=== PATIENT | female | born 1960 | race Caucasian/White ===

== ENCOUNTER → 2019-08-13 09:48 | Outpatient (BNVA) | payer MEDICARE, MEDICAID, SELFPAY | PROVIDERS: Visit Provider Nurse Practitioner Family | DX: I10 Essential (primary) hypertension (principal); F32.9 Major depressive disorder, single episode, unspecified; E78.2 Mixed hyperlipidemia; E11.9 Type 2 diabetes mellitus without complications | CPT/HCPCS: 80053; 80061; 81001; 82652; 83036; 84443; 85025 ==

== ENCOUNTER → 2019-08-16 11:46 | Outpatient (BNVA) | payer MEDICARE, MEDICAID, SELFPAY | PROVIDERS: Visit Provider Nurse Practitioner Family | DX: M25.551 Pain in right hip (principal); E53.8 Deficiency of other specified B group vitamins; E55.9 Vitamin D deficiency, unspecified | CPT/HCPCS: 82306; 82607 ==

== ENCOUNTER 2019-08-26 14:33 | Outpatient (CLI) | payer MEDICARE, MEDICAID, SELFPAY ==
--- NOTE | 2019-08-26 14:46 | XR_ITS ---
WS: [id number] PELVIS AND RIGHT HIP HISTORY: acute on chronic hip pain COMPARISON: None available. Right hip: No acute fracture or dislocation. No osteoblastic or osteolytic bone disease. No displacem ent. Bones the pelvis are symmetric. There is high density material just above the LEFT iliac wing and ext ends over the vertebral bodies. I suspect this may be the patient's clothing. The etiology of this hy perdense material is not certain. Potentially could be within the GI tract. XR/XR hip RT 2-3V wo/w pel* [id number] IMPRESSION: 1. No hip fracture. 2. Negative pelvis. 3. High density material in the soft tissues of the LEFT abdomen of uncertain etiology. May be external to the patient, on the patient's holding over the mid GI tract.
== END 2019-08-26 14:34 | disposition home or self-care (01) ==
LOC: RAD 14:39
PROVIDERS: PCP Nurse Practitioner Family; Visit Provider Nurse Practitioner Family
DX: M25.551 Pain in right hip (principal); G89.29 Other chronic pain
CPT/HCPCS: 73502

== ENCOUNTER → 2019-09-03 13:54 | Outpatient (BNVA) | payer MEDICARE, MEDICAID, SELFPAY | PROVIDERS: PCP Nurse Practitioner Family; Visit Provider Nurse Practitioner Family | DX: K59.00 Constipation, unspecified (principal); S33.5XXA Sprain of ligaments of lumbar spine, initial encounter; S39.012A Strain of muscle, fascia and tendon of lower back, initial encounter; R93.89 Abnormal findings on diagnostic imaging of other specified body structures; M41.85 Other forms of scoliosis, thoracolumbar region | CPT/HCPCS: 72100; 74018 ==

== ENCOUNTER 2019-10-02 07:54 | Outpatient (CLI) | payer MEDICARE, MEDICAID, SELFPAY ==
--- NOTE | 2019-10-02 08:16 | MR_ITS ---
WS: [id number] MRI LUMBAR SPINE NONCONTRAST HISTORY: LUMBAR BACK PAIN COMPARISON: Radiographs 09/03/2019. TECHNIQUE: Sagittal and axial multisequence imaging is submitted. Moderate RIGHT convex curvature the lumbar spine. L5 appears partially sacralized. Mild disc space narrowing and desiccation throughout the lumbar spine. No fractures or marrow edema. Conus terminates normally at L1-2 disc level. L1-L2: Normal. L2-L3: Normal. L3-L4: Mild annular disc bulging and facet arthritis. Mild bilateral foraminal stenosis. Small amount of fluid in the facet joints and ligamentum flavum hypertrophy. L4-L5: Mild annular disc bulging with moderate ligamentum flavum hypertrophy and facet arthritis. The re is mild bilateral foraminal stenosis, RIGHT greater than LEFT. Mild increased T2 signal in the sof t tissues adjacent to the facet joints at L4-5. L5-S1: Rudimentary disc is the L5 vertebral body is probably sacralized. No significant stenosis. No retroperitoneal abnormality. MR/MR lumbar spine wo con* [id number] IMPRESSION: 1. Moderate RIGHT convex curvature of the lumbar spine. 2. L5 vertebral body is sacralized. 3. Mild RIGHT foraminal stenosis at L4-5. 4. Moderate amount of facet arthritis and inflammatory changes at the L4-5 lev el bilaterally.
== END 2019-10-02 07:55 | disposition home or self-care (01) ==
PROVIDERS: PCP Nurse Practitioner Family; Visit Provider Nurse Practitioner Family
DX: M54.5 Low back pain (principal); M48.061 Spinal stenosis, lumbar region without neurogenic claudication; M46.86 Other specified inflammatory spondylopathies, lumbar region
CPT/HCPCS: 72148

== ENCOUNTER 2019-10-28 10:14 | Outpatient (CLI) | payer MEDICARE, MEDICAID, SELFPAY ==
--- NOTE | 2019-10-28 10:22 | XRR_ITS ---
PROCEDURE INFORMATION: Exam: XR lumbosacral Spine Flexion/Extension Only, 2 or 3 Views Exam date and time: 10/28/2019 10:47 AM Age: 58 years old Clinical indication: Low back pain TECHNIQUE: Imaging protocol: XR of the lumbosacral spine with flexion/extension only, 3 views. Other technique: Neutral, flexion and extension and lateral views of the lumbar spine are submitted. COMPARISON: CR XR lumbar spine 2-3V* [id number] 09/03/2019 2:09 PM FINDINGS: Vertebrae: Diffuse osteopenia. Sacralized L5 vertebral segment, normal variant. No instability with flexion or extension positioning identified. Vasculature: Moderate aortic and bilateral iliac artery atherosclerotic calcifications without evidence of aneurysm. Soft tissues: Unremarkable. XR/XR lumbar spine f/e only [id number] IMPRESSION: No instability with flexion or extension positioning identified.
== END 2019-10-28 10:15 | disposition home or self-care (01) ==
LOC: RAD 10:17
PROVIDERS: PCP Nurse Practitioner Family; Visit Provider Licensed Practical Nurse
DX: M54.5 Low back pain (principal)
CPT/HCPCS: 72120

== ENCOUNTER → 2019-10-29 09:01 | Outpatient (BNVA) | payer MEDICARE, MEDICAID, SELFPAY | PROVIDERS: PCP Nurse Practitioner Family; Visit Provider Anesthesiology Pain Medicine | DX: M54.41 Lumbago with sciatica, right side (principal); M54.42 Lumbago with sciatica, left side; M54.9 Dorsalgia, unspecified; S39.012A Strain of muscle, fascia and tendon of lower back, initial encounter; X58.XXXA Exposure to other specified factors, initial encounter; F17.210 Nicotine dependence, cigarettes, uncomplicated; Z79.891 Long term (current) use of opiate analgesic | CPT/HCPCS: 99204 ==

== ENCOUNTER 2019-11-04 06:00 | Outpatient (RCR) | payer MEDICARE, MEDICAID, SELFPAY | END 2019-11-29 23:59 | disposition home or self-care (01) | LOC: WPT 06:00 | PROVIDERS: PCP Nurse Practitioner Family; Referring Provider Licensed Practical Nurse; Visit Provider Licensed Practical Nurse | DX: M47.816 Spondylosis without myelopathy or radiculopathy, lumbar region (principal); M51.17 Intervertebral disc disorders with radiculopathy, lumbosacral region | CPT/HCPCS: 97110; 97112; 97163 ==

== ENCOUNTER → 2019-11-06 12:47 | Outpatient (BNVA) | payer MEDICARE, MEDICAID, SELFPAY | PROVIDERS: PCP Nurse Practitioner Family; Visit Provider Anesthesiology Pain Medicine | DX: M47.816 Spondylosis without myelopathy or radiculopathy, lumbar region (principal); M54.9 Dorsalgia, unspecified; F17.210 Nicotine dependence, cigarettes, uncomplicated | CPT/HCPCS: 64493; 64494; 64495; J3490 ==

== ENCOUNTER → 2019-11-19 09:14 | Outpatient (BNVA) | payer MEDICARE, MEDICAID, SELFPAY | PROVIDERS: PCP Nurse Practitioner Family; Visit Provider Anesthesiology Pain Medicine | DX: M54.41 Lumbago with sciatica, right side (principal); M54.42 Lumbago with sciatica, left side; M54.9 Dorsalgia, unspecified; F17.210 Nicotine dependence, cigarettes, uncomplicated | CPT/HCPCS: 99213 ==

== ENCOUNTER 2019-11-30 06:00 | Outpatient (RCR) | payer MEDICARE, MEDICAID, SELFPAY | END 2019-12-30 23:59 | disposition home or self-care (01) | LOC: WPT 06:00 | PROVIDERS: PCP Nurse Practitioner Family; Referring Provider Licensed Practical Nurse; Visit Provider Licensed Practical Nurse | DX: M51.17 Intervertebral disc disorders with radiculopathy, lumbosacral region (principal); M47.816 Spondylosis without myelopathy or radiculopathy, lumbar region | CPT/HCPCS: 97110 ==

== ENCOUNTER → 2019-12-09 10:55 | Outpatient (BNVA) | payer MEDICARE, MEDICAID, SELFPAY | PROVIDERS: PCP Nurse Practitioner Family; Visit Provider Licensed Practical Nurse | DX: M51.17 Intervertebral disc disorders with radiculopathy, lumbosacral region (principal); M47.26 Other spondylosis with radiculopathy, lumbar region; F17.210 Nicotine dependence, cigarettes, uncomplicated | CPT/HCPCS: 99214 ==

== ENCOUNTER → 2020-08-03 14:26 | Outpatient (BNVA) | payer MEDICARE, MEDICAID, SELFPAY | PROVIDERS: PCP Nurse Practitioner Family; Visit Provider Nurse Practitioner Family | DX: M25.519 Pain in unspecified shoulder (principal); F33.0 Major depressive disorder, recurrent, mild; Z89.021 Acquired absence of right finger(s); Z98.890 Other specified postprocedural states; G56.00 Carpal tunnel syndrome, unspecified upper limb | CPT/HCPCS: 73030 ==

== ENCOUNTER → 2021-04-12 15:40 | Outpatient (BNVA) | payer MEDICARE, MEDICAID, SELFPAY | PROVIDERS: PCP Nurse Practitioner Family; Visit Provider Nurse Practitioner Family | DX: M25.561 Pain in right knee (principal); M17.11 Unilateral primary osteoarthritis, right knee | CPT/HCPCS: 73562 ==

== ENCOUNTER 2021-05-25 06:00 | Outpatient (RCR) | payer MEDICARE, MEDICAID, SELFPAY | END 2021-05-31 23:59 | disposition home or self-care (01) | LOC: WPT 06:00 | PROVIDERS: PCP Nurse Practitioner Family; Referring Provider Orthopaedic Surgery; Visit Provider Orthopaedic Surgery | DX: M25.561 Pain in right knee (principal) | CPT/HCPCS: 97162 ==

== ENCOUNTER 2021-06-01 06:00 | Outpatient (RCR) | payer MEDICARE, MEDICAID, SELFPAY | END 2021-06-28 23:59 | disposition home or self-care (01) | LOC: WPT 06:00 | PROVIDERS: PCP Nurse Practitioner Family; Referring Provider Orthopaedic Surgery; Visit Provider Orthopaedic Surgery | DX: M25.561 Pain in right knee (principal) | CPT/HCPCS: 97032; 97110; 97140; 97530 ==

== ENCOUNTER 2021-06-11 10:03 | Outpatient (CLI) | payer MEDICARE, MEDICAID, SELFPAY ==
--- NOTE | 2021-06-11 10:20 | CT_ITS ---
WS: [id number] CT HEAD TECHNIQUE: Noncontrast CT of the head obtained from the skullbase to the vertex. CLINICAL INFORMATION: R55 - Syncope and collapse COMPARISON: None. DLP: 1016.[address] scans at [facility] use at least one of these dose optimization techniques: automated e xposure control; mA and/or kV adjustment per patient size (includes targeted exams where dose is matc hed to clinical indication); or iterative reconstruction. FINDINGS: No evidence of intracranial hemorrhage or mass effect. Ventricular system and basal cisterns are saldaña nt. Mild small vessel changes with mild parenchymal volume loss. No extra-axial fluid collections. No evidence of mass or mass effect. Normal durand-white differentiation. Paranasal sinuses and mastoid air cells are well aerated. .Normal visualized soft tissues. CT/CT head wo con* [id number] IMPRESSION: 1. No evidence of intracranial hemorrhage or mass effect. 2. Mild small vessel changes. Mild parenchymal volume loss. 3. No acute intracranial findings.
== END 2021-06-11 10:04 | disposition home or self-care (01) ==
PROVIDERS: PCP Nurse Practitioner Family; Visit Provider Nurse Practitioner Family
DX: K11.7 Disturbances of salivary secretion (principal); R55 Syncope and collapse
CPT/HCPCS: 70450

== ENCOUNTER 2021-08-09 10:46 | Outpatient (CLI) | payer MEDICARE, MEDICAID, SELFPAY ==
--- NOTE | 2021-08-09 11:00 | MR_ITS ---
WS: [id number] MRI RIGHT KNEE NONCONTRAST TECHNIQUE: Axial PD, coronal PD fat sat, coronal PD, sagittal PD, and sagittal PD fat-sat images obta ined. CLINICAL INFORMATION: M25.569 - Pain in unspecified knee COMPARISON: None. FINDINGS: Distal quadriceps and patella tendons are intact. Normal ACL and PCL. Normal medial and lateral menis cus. No acute appearing meniscal tears. Mild chronic thinning of the medial and lateral meniscus. Nor mal medial and lateral collateral ligaments. Mild chondromalacia involving the medial and lateral joint compartments. Normal popliteal fossa. Mild chondromalacia patella. T2 hyperintense lesion posterior lateral femoral condyle measuring 7 x 10 mm likely degenerative cyst or intraosseous ganglion cyst. Medial and lateral patellar retinaculum are intact. Normal popliteal fossa. MR/MR knee RT wo con* [id number] IMPRESSION: 1. Normal ACL and PCL. 2. Chronic thinning of the medial and lateral meniscus. No acute appearing men iscal tears. 3. Mild chondromalacia patella. No subchondral edema. 4. Normal popliteal fossa. 5. Mild chondromalacia involving the medial and lateral joint compartments. Outbridge grading: grade II: blister-like swelling/fraying of articular cartila ge extending to surface
== END 2021-08-09 10:47 | disposition home or self-care (01) ==
LOC: RAD 10:48
PROVIDERS: PCP Nurse Practitioner Family; Visit Provider Orthopaedic Surgery
DX: M22.41 Chondromalacia patellae, right knee (principal)
CPT/HCPCS: 73721

== ENCOUNTER → 2021-09-03 09:59 | Outpatient (BNVA) | payer MEDICARE, MEDICAID, SELFPAY | PROVIDERS: PCP Nurse Practitioner Family; Visit Provider Nurse Practitioner | DX: E78.2 Mixed hyperlipidemia (principal); I10 Essential (primary) hypertension | CPT/HCPCS: 80053; 80061; 82306; 84443; 85025 ==

== ENCOUNTER → 2021-09-08 09:23 | Outpatient (BNVA) | payer MEDICARE, MEDICAID, SELFPAY | PROVIDERS: PCP Nurse Practitioner Family; Visit Provider Orthopaedic Surgery | DX: M25.561 Pain in right knee (principal) | CPT/HCPCS: 99213 ==

== ENCOUNTER → 2021-12-22 08:27 | Outpatient (BNVA) | payer MEDICARE, MEDICAID, SELFPAY | PROVIDERS: PCP Nurse Practitioner Family; Visit Provider Nurse Practitioner Family | DX: M17.11 Unilateral primary osteoarthritis, right knee (principal) | CPT/HCPCS: 20610; 99213; 99214; J1100; J2795; J3301 ==

== ENCOUNTER 2022-05-04 11:02 | Outpatient (CLI) | payer MEDICARE, MEDICAID, SELFPAY ==
[2022-05-05 11:25] LABS: COMPLEMENT COMPONENT C3C 130 mg/dL (83-193); COMPLEMENT COMPONENT C4C 25 mg/dL (15-57)
[2022-05-05 13:29] LABS: THYROID PEROXIDASE ANTIBODIES 2 IU/mL (<9)
[2022-05-05 13:44] LABS: CENTROMERE B ANTIBODY <1.0 NEG AI (<1.0 NEG); JO-1 ANTIBODY <1.0 NEG AI (<1.0 NEG); RNP ANTIBODY <1.0 NEG AI (<1.0 NEG); SCL-70 ANTIBODY <1.0 NEG AI (<1.0 NEG); SJOGREN'S ANTIBODY (SS-A) >8.0 POS AI (<1.0 NEG); SM ANTIBODY <1.0 NEG AI (<1.0 NEG); SS-B <1.0 NEG AI (<1.0 NEG)
[2022-05-06 11:35] LABS: ANA PATTERN Nuclear, Speckled; ANA SCREEN, IFA POSITIVE (NEGATIVE)
[2022-05-06 14:44] LABS: COMPLEMENT, TOTAL (CH50) >60 U/mL (31-60)
[2022-05-07 10:31] LABS: DNA AB (DS) CRITHIDIA,IFA NEGATIVE (NEGATIVE)
== END 2022-05-04 11:03 | disposition home or self-care (01) ==
LOC: LAB 11:12
PROVIDERS: PCP Nurse Practitioner Family; Visit Provider Nurse Practitioner Family
DX: L80 Vitiligo (principal)
CPT/HCPCS: 36415; 86160; 86162; 86235; 86255; 86376

== ENCOUNTER → 2022-08-24 14:36 | Outpatient (BNVA) | payer MEDICARE, MEDICAID, SELFPAY | PROVIDERS: PCP Nurse Practitioner; Visit Provider Dermatology | DX: L80 Vitiligo (principal); R76.0 Raised antibody titer | CPT/HCPCS: 99213 ==

== ENCOUNTER → 2022-12-13 10:50 | Outpatient (BNVA) | payer MEDICARE, MEDICAID, SELFPAY | PROVIDERS: PCP Nurse Practitioner; Visit Provider Nurse Practitioner | DX: R69 Illness, unspecified (principal) | CPT/HCPCS: 87426 ==

== ENCOUNTER 2023-01-30 13:06 | Outpatient (CLI) | payer MEDICARE, MEDICAID, SELFPAY ==
--- NOTE | 2023-01-30 13:24 | MM_ITS ---
WS: [id number] BILATERAL 3D TOMOSYNTHESIS DIGITAL SCREENING MAMMOGRAPHY WITH CAD CLINICAL INFORMATION: Z00.00 - Encounter for general adult medical examination ... HISTORY: Screening mammogram. No current complaints. COMPARISON: 2019 TECHNIQUE: Bilateral CC and MLO views. FINDINGS: The breasts are composed of heterogeneous fibroglandular density tissue, which can limit the detectio n of small underlying mass lesions. No suspicious mass, asymmetry, calcifications, or architectural d istortion. No evidence of malignancy. IMPRESSION: MM/[place] [id number] BI-RADS: 1-Negative FOLLOW UP: 1 Year Follow-up Recommend return to annual screening mammography.
== END 2023-01-30 13:07 | disposition home or self-care (01) ==
PROVIDERS: PCP Family Medicine; Visit Provider Family Medicine
DX: Z12.31 Encounter for screening mammogram for malignant neoplasm of breast (principal)
CPT/HCPCS: 77063; 77067

== ENCOUNTER → 2023-05-10 09:53 | Outpatient (BNVA) | payer MEDICARE, MEDICAID, SELFPAY | PROVIDERS: PCP Family Medicine; Visit Provider Nurse Practitioner Family | DX: K52.9 Noninfective gastroenteritis and colitis, unspecified (principal); I10 Essential (primary) hypertension; E78.2 Mixed hyperlipidemia; Z79.899 Other long term (current) drug therapy; E55.9 Vitamin D deficiency, unspecified | CPT/HCPCS: 80053; 80061; 81003; 82306; 83036; 84443; 85025 ==

== ENCOUNTER → 2023-05-16 14:48 | Outpatient (BNVA) | payer MEDICARE, MEDICAID, SELFPAY | PROVIDERS: PCP Family Medicine; Visit Provider Nurse Practitioner Family | DX: K52.9 Noninfective gastroenteritis and colitis, unspecified (principal) | CPT/HCPCS: G0328 ==

== ENCOUNTER → 2023-06-07 08:31 | Outpatient (BNVA) | payer MEDICARE, MEDICAID, SELFPAY | PROVIDERS: PCP Family Medicine; Referring Provider Nurse Practitioner Family; Visit Provider Surgery | DX: Z12.11 Encounter for screening for malignant neoplasm of colon (principal) | CPT/HCPCS: 99024; 99203 ==

== ENCOUNTER 2023-09-07 05:42 | Day surgery (SDC) | payer MEDICARE, MEDICAID, SELFPAY ==
--- NOTE | 2023-09-07 05:34 | W.PM.OPSFHP ---
Same Day Surgery H&P Indication for Procedure/HPI DATE OF PROCEDURE: September 07, 2023 CHIEF COMPLAINT/INDICATIONFOR SURGICAL PROCEDURE: diarrhea PREOP DIAGNOSIS: need for screening colonoscopy PLANNED PROCEDURE: Operation Date: 09/07/23 07:00 [place] [id number] colon G0105 screen colon H risk Z12.11(Not Applicable) - Logan Pablo MD Medications/Allergies* Home Medications Medication Instructions Recorded Confirmed Type loratadine 10 mg tablet (Allergy 20 mg PO BID 09/24/19 09/05/23 History Relief (loratadine)) melatonin 10 mg capsule 10 mg PO DAILY 09/24/19 09/05/23 History escitalopram oxalate 20 mg tablet 20 mg PO DAILY 09/05/23 09/05/23 History gabapentin 100 mg capsule See Rx Instructions .Route .COMPLEX 09/05/23 09/05/23 History lisinopril 10 mg tablet 10 mg PO DAILY 09/05/23 09/05/23 History omeprazole 20 mg capsule,delayed 20 mg PO DAILY 09/05/23 09/05/23 History release rosuvastatin 20 mg tablet 20 mg PO DAILY 09/05/23 09/05/23 History sulindac 150 mg tablet 150 mg PO BID 09/05/23 09/05/23 History Allergies/Adverse Reactions Allergy/AdvReac Type Severity Reaction Status Date / Time Penicillins AdvReac yeast Verified 09/05/23 10:41 infection Pertinent History/Comorbid Conditions* Medical History (Updated 05/13/23 @ 16:54 by SHARAN Donato) Family history of colon cancer Colon polyp Chronic diarrhea Pain management contract signed [facility] (current) use of opiate analgesic Facet arthritis of lumbar region Vitiligo Tendinitis of right knee Syncope and collapse Arthritis of right knee Worsening vision Double vision Arthritis pain Nasal congestion Vaginal yeast infection 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 H/O colonoscopy with polypectomy Most recent 07/2018 suggested repeat 07/2028 S/P hysterectomy Family History (Updated 10/28/19 @ 09:15 by Trudy Astudillo LPN) Diabetes Mother CAD (coronary artery disease) Brother Cancer Mother Sister Social History Smoking and tobacco/nicotine status: current every day tobacco/nicotine user cigarettes Packs smoked per day: 1 Alcohol intake: never Substance/Drug Use: never Household members: none Marital status: / Current occupational status: disabled Current occupation: disabled Pertinent Exam Findings alert, oriented x 3, clear to auscultation bilaterally and regular rate & rhythm Recommendations Surgery/Procedure today Coding Level of Care Code Acute Code for Chg Fwd
[2023-09-07 05:54] VITALS: BMI 23.1
[2023-09-07 06:04] VITALS: BP 115/75; PULSE 74; RESP 18; TEMP 36.1; O2SAT 100
[2023-09-07] MEDS: sodium chloride 0.9% 1,000 ML 30 ML IV (06:08)
--- NOTE | 2023-09-07 06:58 | ANES.PREANE2 ---
Pre-Anesthetic Assessment Height/Weight: Height 1.63 m Weight 61.235 kg Temp Pulse Resp BP Pulse Ox O2 Del Method 97.0 F L 74 18 115/75 100 Room Air 09/07/23 06:04 09/07/23 06:04 09/07/23 06:04 09/07/23 06:04 09/07/23 06:04 09/07/23 06:04 Preop Diagnosis: need for screening colonoscopy Operation Date: 09/07/23 07:00 Proposed Procedures p 20155 colon G0105 screen colon H risk Z12.11(Not Applicable) - Logan Pablo MD Was Beta Miriam taken within 24 hours: N/A Was Clonidine taken within 24 hours: N/A Last intake: Intake Last Liquid Date 09/06/23 Last Liquid Time 20:00 Last Solid Date 09/05/23 Social Tobacco and No alcohol Exam alert, oriented x 3, clear to auscultation bilaterally and regular rate & rhythm Airway Submandibular: within normal limits Cervical ROM: within normal limits Mallampati: Class II Dentition: false History/ROS No significant history except as noted and No significant complaints Pulmonary Chronic Obstructive Pulmonary Disease CV/HEM Hypertension None reported Hepatic None reported GI Gastroesophageal Reflux Disease Metabolic None reported Musc/skel Osteoarthritis/DJD and Weakness Neuropsych Anxiety, Depression and Neuropathy Anesthetic Plan ASA status: 3 Anesthesia: Anesthesia Evaluation and MAC Risk of > 500 ml blood loss (7ml/kg in children): No Medications/Allergies Home Medications Medication Instructions Recorded Confirmed Last Taken Type loratadine 10 mg tablet (Allergy 20 mg PO BID 09/24/19 09/05/23 09/06/23 History Relief (loratadine)) melatonin 10 mg capsule 10 mg PO DAILY 09/24/19 09/05/23 09/06/23 History escitalopram oxalate 20 mg tablet 20 mg PO DAILY 09/05/23 09/05/23 09/07/23 History gabapentin 100 mg capsule See Rx Instructions .Route .COMPLEX 09/05/23 09/05/23 09/06/23 History lisinopril 10 mg tablet 10 mg PO DAILY 09/05/23 09/05/23 09/06/23 History omeprazole 20 mg capsule,delayed 20 mg PO DAILY 09/05/23 09/05/23 09/06/23 History release rosuvastatin 20 mg tablet 20 mg PO DAILY 09/05/23 09/05/23 09/06/23 History sulindac 150 mg tablet 150 mg PO BID 09/05/23 09/05/23 09/06/23 History Allergies Allergy/AdvReac Type Severity Reaction Status Date / Time Penicillins AdvReac yeast Verified 09/07/23 05:58 infection Current Medications Generic Name Dose Route Start Last Admin Trade Name Jen PRN Reason Stop Dose Admin Sodium Chloride 1,000 mls @ 30 mls/hr 09/07/23 06:00 09/07/23 06:08 Sodium Chloride 0.9% IV 30 mls/hr .Q24H TAMARA Administration PFSH Anesthesia Medical History Family history of colon cancer Colon polyp Chronic diarrhea Pain management contract signed [facility] (current) use of opiate analgesic Facet arthritis of lumbar region Vitiligo Tendinitis of right knee Syncope and collapse Arthritis of right knee Worsening vision Double vision Arthritis pain Nasal congestion Vaginal yeast infection Osteoarthritis of lumbar spine Intervertebral disc disorder with radiculopathy of lumbosacral region Iron adverse reaction Primary insomnia Chronic hip pain Obstructive sleep apnea Vitamin D deficiency Mixed hyperlipidemia GERD (gastroesophageal reflux disease) Neuropathy Essential hypertension Depression Surgical History S/P carpal tunnel release 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 H/O colonoscopy with polypectomy Most recent 07/2018 suggested repeat 07/2028 S/P hysterectomy Family History Mother Cancer Diabetes Sister Cancer Brother CAD (coronary artery disease) Social History Smoking and tobacco/nicotine status: current every day tobacco/nicotine user cigarettes Packs smoked per day: 1 Alcohol intake: never Substance/Drug Use: never Household members: none Marital status: / Current occupational status: disabled Current occupation: disabled Data Anesthesia Cardiac Studies: No Data to Display
[2023-09-07 07:24] VITALS: BP 86/48; PULSE 62; RESP 16; TEMP 36.1; O2SAT 100
[2023-09-07 07:41] VITALS: BP 109/75; PULSE 67; RESP 18; O2SAT 98
--- NOTE | 2023-09-07 07:55 | ANE.PACU2 ---
Inpatient post-anesthesia follow up: Airway intact: Yes Vital signs: Temperature 97 F Pulse Rate 67 Respiratory Rate 18 Blood Pressure 109/75 Pulse Oximetry 98 Oxygen Delivery Me thod Room Air Oxygen Flow Rate 2 Fraction of Inspir ed Oxygen Hydration adequate: Yes Nausea and vomiting: No Pain level: 1 Mental status: Baseline
== END 2023-09-07 07:58 | disposition home or self-care (01) ==
PROVIDERS: PCP Family Medicine; Visit Provider Surgery
PROC: 0DJD8ZZ Inspection of Lower Intestinal Tract, Via Natural or Artificial Opening Endoscopic (ICD-10-PCS; CPT 45378; principal; 2023-09-07 07:00)
DX: Z12.11 Encounter for screening for malignant neoplasm of colon (principal); Z86.010 Personal history of colon polyps
CPT/HCPCS: G0121; J2704; J7030

== ENCOUNTER 2024-03-06 10:36 | Outpatient (CLI) | payer MEDICARE, MEDICAID, SELFPAY ==
--- NOTE | 2024-03-06 10:40 | MM_ITS ---
WS: [id number] BILATERAL SCREENING DIGITAL TOMOSYNTHESIS MAMMOGRAM WITH CAD HISTORY: SCREENING COMPARISON: 07/26/2018, 08/28/2014, 01/30/2023 Bilateral CC and MLO views with tomosynthesis and synthetic mammography submitted. Computer aided det ection analyzed. Breast composition: The breasts are heterogeneously dense, which may obscure small masses. No suspici ous masses, microcalcifications or architectural distortion. MM/MM [facility] tomosynthesis [id number] IMPRESSION: BI-RADS: 1 - Negative FOLLOW UP: 1 Year Follow-up
== END 2024-03-06 10:37 | disposition home or self-care (01) ==
LOC: MOBLMAM 10:41
PROVIDERS: PCP Nurse Practitioner Family; Visit Provider Nurse Practitioner Family
DX: Z12.31 Encounter for screening mammogram for malignant neoplasm of breast (principal); R92.333 Mammographic heterogeneous density, bilateral breasts
CPT/HCPCS: 77063; 77067

== ENCOUNTER → 2024-03-11 11:28 | Outpatient (BNVA) | payer MEDICARE, MEDICAID, SELFPAY | PROVIDERS: PCP Nurse Practitioner Family; Visit Provider Nurse Practitioner Family | DX: M25.551 Pain in right hip (principal); M16.11 Unilateral primary osteoarthritis, right hip; M17.11 Unilateral primary osteoarthritis, right knee | CPT/HCPCS: 73502; 73562 ==

== ENCOUNTER 2024-03-18 10:24 | Emergency (ER) | payer MEDICARE, MEDICAID, SELFPAY ==
[2024-03-18 11:16] VITALS: BP 176/75; PULSE 65; RESP 18; TEMP 36.5; O2SAT 99
--- NOTE | 2024-03-18 12:30 | XR_ITS ---
WS: [id number] Exam: XR hip RT 2-3V wo/w pel* [id number] Date/Time of Exam: 03/18/2024 12:40 PM Reason For Exam: hip pain No acute fracture. Minimal DJD of the acetabulum. Soft tissues are unremarkable. XR/XR hip RT 2-3V wo/w pel* [id number] IMPRESSION: 1. Minimal DJD.
--- NOTE | 2024-03-18 12:50 | W.ED.EXTPRO ---
HPI - Extremity Problem General: Chief complaint: Extremity Problem,Nontraumatic Stated complaint: right leg pain, fever Time Seen by Provider: 03/18/24 12:30 History of Present Illness: 63-year-old female presents emergency room complaining of back pain with pain radiating into her right upper leg down to the level of the knee. She is not having difficulty with fecal incontinence or urinary retention. Patient has had intermittent cough congestion subjective fever reported as well. She had some chest pain which she relates to her coughing episodes. Associated symptoms: Reports fever(s); Deny chest pain or rash Related Data Home Medications Medication Instructions Recorded Confirmed loratadine 10 mg tablet (Allergy 20 mg PO BID 09/24/19 03/13/24 Relief (loratadine)) melatonin 10 mg capsule 10 mg PO DAILY 09/24/19 03/13/24 Previous Rx's Medication Instructions Recorded sulindac 150 mg tablet See Rx Instructions .Route 10/16/23 .COMPLEX #120 tabs omeprazole 20 mg capsule,delayed See Rx Instructions .Route 01/17/24 release .COMPLEX #90 caps gabapentin 100 mg capsule See Rx Instructions .Route 01/25/24 .COMPLEX #270 caps escitalopram oxalate 20 mg tablet See Rx Instructions .Route 03/11/24 .COMPLEX #90 tabs lisinopril 10 mg tablet See Rx Instructions .Route 03/11/24 .COMPLEX #90 tabs rosuvastatin 20 mg tablet See Rx Instructions .Route 03/11/24 .COMPLEX #30 tabs diclofenac sodium 75 mg 75 mg PO Q12H PRN pain #20 tabs 03/18/24 tablet,delayed release prednisone 20 mg tablet 20 mg PO TID #15 tabs 03/18/24 tizanidine 4 mg tablet 4 mg PO Q6H PRN muscle spasticity 03/18/24 #20 tabs Allergies Allergy/AdvReac Type Severity Reaction Status Date / Time Penicillins AdvReac yeast Verified 03/13/24 10:35 infection Review of Systems Const: Reports: fever(s); Denies: chills Card: Denies: chest pain Resp: Reports: non-productive cough and chest congestion; Denies: dyspnea GI: Denies: abdominal pain : Denies: dysuria, urinary frequency or urinary urgency Musc: Denies: neck pain or back pain Skin/Breast: Denies: rash PFSH ED PFSH: Medical History Lumbar disc disease with radiculopathy Osteoarthritis of right hip Right hip pain Family history of colon cancer Colon polyp Chronic diarrhea Pain management contract signed USP (current) use of opiate analgesic Facet arthritis of lumbar region Vitiligo Tendinitis of right knee Syncope and collapse Arthritis of right knee Worsening vision Double vision Arthritis pain Nasal congestion Vaginal yeast infection Osteoarthritis of lumbar spine Intervertebral disc disorder with radiculopathy of lumbosacral region Iron adverse reaction Primary insomnia Chronic hip pain Obstructive sleep apnea Vitamin D deficiency Mixed hyperlipidemia GERD (gastroesophageal reflux disease) Neuropathy Essential hypertension Depression Surgical History S/P carpal tunnel release 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 H/O colonoscopy with polypectomy Most recent 07/2018 suggested repeat 07/2028 S/P hysterectomy Family History Mother Cancer Diabetes Sister Cancer Brother CAD (coronary artery disease) Social History Smoking and tobacco/nicotine status: current every day tobacco/nicotine user cigarettes Packs smoked per day: 1 Alcohol intake: never Substance/Drug Use: never Household members: none Marital status: / Current occupational status: disabled Current occupation: disabled Physical Exam Const: COMMON NORMALS: no acute distress GENERAL APPEARANCE: cooperative ORIENTATION/CONSCIOUSNESS: Yes awake, Yes oriented to person, Yes oriented to place and Yes oriented to time HENMT: COMMON NORMALS: normocephalic, atraumatic and hearing grossly normal bilaterally HEAD & SCALP: normocephalic and atraumatic Resp: COMMON NORMALS: normal respiratory effort, No retractions, No use of accessory muscles and clear to auscultation bilaterally AUSCULTATION: clear to auscultation bilaterally Cardio: COMMON NORMALS: regular rate, regular rhythm and No murmurs present (Cardio) RATE: regular rate RHYTHM: regular rhythm GI: COMMON NORMALS: Soft to palpation and No hepatosplenomegaly present AUSCULTATION: Yes normoactive bowel sounds PALPATION: Yes Soft to palpation, No Tenderness to palpation present (GI), No Guarding due to palpation present (GI) and Yes No hepatosplenomegaly present Extremity: COMMON NORMALS: normal to inspection, capillary refill normal, no clubbing, cyanosis or edema, no calf tenderness and no pedal edema Neuro: SENSORIUM/ORIENTATION: Yes oriented to person, Yes oriented to place and Yes oriented to time OTHER: Deep tendon reflexes +2/4 the Achilles tendon dorsum plantarflexion 5/5 neurovascular intact in lower extremities no loss sensation Skin: COMMON NORMALS: no rashes or lesions noted GENERAL SKIN EXAM: no rashes or lesions noted Course Vital Signs: Vital signs: Vital Signs Temperature 97.7 F 03/18/24 11:16 Pulse Rate 56 L 03/18/24 15:37 Respiratory Rate 18 03/18/24 11:16 Blood Pressure 156/78 03/18/24 15:37 Pulse Oximetry 98 03/18/24 15:37 Oxygen Delivery Me thod Room Air 03/18/24 11:16 MDM - Extremity (Nontraumatic) Medical Decision Making Suspect her pain is due to the lumbar radiculopathy will refer her to orthopedic spine clinic. She does not have any leukocytosis. On auscultation her lungs were clear. She is not having any coughing now. She does not have a fever at this time. Urine flu COVID RSV all negative. Treat symptomatically gave her steroid taper diclofenac and muscle relaxer follow-up with orthopedic spine clinic return if is worsening or changes symptoms Medical Records I reviewed the patient's medical records. Lab Data I reviewed the patient's lab results. 03/18/24 14:58 03/18/24 14:58 Radiology Impressions Hip/Pelvis X-Ray 03/18/24 12:30 IMPRESSION: 1. Minimal DJD. Laboratory Results WBC 3.28 10^3/uL (3.29-11.43) L 03/18/24 14:58 RBC 3.24 10^6/uL (3.85-5.65) L 03/18/24 14:58 Hgb 11.10 g/dL (11.27-16.99) L 03/18/24 14:58 Hct 33.1 % (36-47) L 03/18/24 14:58 MCV 102.2 fl (85-98) H 03/18/24 14:58 MCH 34.3 pg (27-33) H 03/18/24 14:58 MCHC 33.5 g/dL (30-55) 03/18/24 14:58 RDW 12.4 % (12.1-15.1) 03/18/24 14:58 Plt Count 169 10^3/cmm (157-399) 03/18/24 14:58 MPV 8.1 fL (7.4-10.4) 03/18/24 14:58 Neut % (Auto) 55.5 % 03/18/24 14:58 Lymph % (Auto) 37.2 % 03/18/24 14:58 [place]he % (Auto) 5.8 % 03/18/24 14:58 Eos % (Auto) 0.9 % 03/18/24 14:58 Baso % (Auto) 0.3 % 03/18/24 14:58 Neut # (Auto) 1.82 10^3/uL (1.8-7.7) 03/18/24 14:58 Lymph # (Auto) 1.2 10^3/uL (0.8-4.8) 03/18/24 14:58 Ashe # (Auto) 0.2 10^3/uL (0.2-0.9) 03/18/24 14:58 Eos # (Auto) 0.0 10^3/uL (0.0-0.8) 03/18/24 14:58 Baso # (Auto) 0.0 10^3/uL (0.0-0.1) 03/18/24 14:58 Nucleated RBC % (auto) 0 % 03/18/24 14:58 Nucleated RBCs # 0.0 /100WBC 03/18/24 14:58 Sodium 129 mmol/L (136-145) L 03/18/24 14:58 Potassium 4.2 mmol/L (3.5-5.1) 03/18/24 14:58 Chloride 95 mmol/L (98-107) L 03/18/24 14:58 Carbon Dioxide 24 mmol/L (22-29) 03/18/24 14:58 Anion Gap 14.2 (5-19) 03/18/24 14:58 BUN 9 mg/dL (8-23) 03/18/24 14:58 Creatinine 0.8 mg/dL (0.5-0.9) 03/18/24 14:58 GFR Calculation 72.7 mL/min (90-130) L 03/18/24 14:58 Glucose 91 mg/dL (65-115) 03/18/24 14:58 Calculated Osmolality 266 mOsm/kg (285-295) L 03/18/24 14:58 Calcium 8.4 mg/dL (8.5-10.5) L 03/18/24 14:58 Total Bilirubin 0.5 mg/dL (0.15-1.2) 03/18/24 14:58 AST 14 U/L (0-32) 03/18/24 14:58 ALT 10 U/L (0-33) 03/18/24 14:58 Alkaline Phosphatase 141 U/L (35-105) H 03/18/24 14:58 Total Protein 6.9 g/dL (6.6-8.7) 03/18/24 14:58 Albumin 4.1 g/dL (3.5-5.2) 03/18/24 14:58 Globulin 2.8 g/dL (1.3-4.6) 03/18/24 14:58 Urine Color Yellow (Yellow) 03/18/24 14:37 Urine Appearance Clear (CLEAR) 03/18/24 14:37 Urine pH 5.5 (5-7) 03/18/24 14:37 Ur Specific Rigby 1.014 (1.005-1.030) 03/18/24 14:37 Urine Protein Negative (Negative) 03/18/24 14:37 Urine Glucose (UA) Negative (Normal) 03/18/24 14:37 Urine Ketones Negative (Negative) 03/18/24 14:37 Urine Blood Trace (Negative) A 03/18/24 14:37 Urine Nitrate Negative (Negative) 03/18/24 14:37 Urine Bilirubin Negative (Negative) 03/18/24 14:37 Urine Urobilinogen 1.0 mg/dL (Negative) 03/18/24 14:37 Ur Leukocyte Esterase Trace (Negative) A 03/18/24 14:37 Urine RBC 6-10 /hpf (0-2) 03/18/24 14:37 Urine WBC 6-10 /hpf (0-5) 03/18/24 14:37 Ur Squamous Epith Cells 6-10 /hpf (0-5) 03/18/24 14:37 Amorphous Sediment Not Reportable 03/18/24 14:37 Urine Bacteria 1+ /hpf (NONE) H 03/18/24 14:37 Hyaline Casts 1.65 /lpf 03/18/24 14:37 Coronavirus (PCR) Negative (Negative) 03/18/24 14:07 Influenza A (PCR) Negative (Negative) 03/18/24 14:07 Influenza Type B (PCR) Negative (Negative) 03/18/24 14:07 RSV (PCR) Negative (Negative) 03/18/24 14:07 All radiology interpretation(s) finalized by discharge Discharge Plan Discharge Patient Disposition: Home Clinical Impression: Lumbar radiculopathy, right Condition: Stable Prescriptions: New tizanidine 4 mg tablet 4 mg PO Q6H PRN (Reason: muscle spasticity) Qty: 20 0RF Rx Instructions: do not exceed 3 doses per 24 hrs prednisone 20 mg tablet 20 mg PO TID Qty: 15 0RF Rx Instructions: 1 p.o. 3 times daily x3 days, 1 p.o. twice daily x2 days, 1 p.o. daily x2 days diclofenac sodium 75 mg tablet,delayed release (DR/EC) 75 mg PO Q12H PRN (Reason: pain) Qty: 20 0RF No Action melatonin 10 mg capsule 10 mg PO DAILY loratadine [Allergy Relief (loratadine)] 10 mg tablet 20 mg PO BID sulindac 150 mg tablet See Rx Instructions .ROUTE .COMPLEX Qty: 120 2RF Dose Instruction: TAKE 1 TABLET BY MOUTH TWICE DAILY FOR knee PAIN; STOP celebrex IF still taking AND TAKE this instead Rx Instructions: TAKE 1 TABLET BY MOUTH TWICE DAILY FOR knee PAIN; STOP celebrex IF still taking AND TAKE this instead omeprazole 20 mg capsule,delayed release(DR/EC) See Rx Instructions .ROUTE .COMPLEX Qty: 90 1RF Dose Instruction: TAKE 1 CAPSULE BY MOUTH DAILY Rx Instructions: TAKE 1 CAPSULE BY MOUTH DAILY gabapentin 100 mg capsule See Rx Instructions .ROUTE .COMPLEX Qty: 270 1RF Dose Instruction: TAKE 1 CAPSULE BY MOUTH THREE TIMES DAILY Rx Instructions: TAKE 1 CAPSULE BY MOUTH THREE TIMES DAILY escitalopram oxalate 20 mg tablet See Rx Instructions .ROUTE .COMPLEX Qty: 90 1RF Dose Instruction: TAKE 1 TABLET BY MOUTH EVERY DAY Rx Instructions: TAKE 1 TABLET BY MOUTH EVERY DAY lisinopril 10 mg tablet See Rx Instructions .ROUTE .COMPLEX Qty: 90 1RF Dose Instruction: TAKE 1 TABLET BY MOUTH EVERY DAY Rx Instructions: TAKE 1 TABLET BY MOUTH EVERY DAY rosuvastatin 20 mg tablet See Rx Instructions .ROUTE .COMPLEX Qty: 30 5RF Dose Instruction: TAKE 1 TABLET BY MOUTH EVERY DAY Rx Instructions: TAKE 1 TABLET BY MOUTH EVERY DAY Discharge Orders: Discharge ED (Routine); Ordered 03/18/24 Ordered By: Chapin Small Referrals: JONAH Connors, BIC[employer] II ASSEMBLER [Primary Care Provider] - Discharge Diet: Usual diet Discharge Activity: Increase activity as tolerated Patient Instructions: Opioid Safety, Pain Management Activity Restrictions/Additional Instructions: Thank you for choosing [facility] for your healthcare needs today. It is very important that you follow up as instructed or that you return to the Emergency Department should you have concerns or if your condition changes or worsens in any way. You are seen in the emergency room with complaint of back pain and pain radiating to your right leg. It also complained of hip pain. Some arthritic changes your hip. I suspect the back pain you are having is caused by nerve irritation causing radiating pain into the right leg. Will start you on a steroid taper you can begin tomorrow. Also your muscle relaxer at a different anti-inflammatory to take. human resources communications manager will make arrangements for you to follow-up with orthopedic spine surgery for further evaluation and treatment options. You had also complained of a fever at home your white count was normal or no other significant findings noted on your exam or lab work. Coding Level of Care Code ED Lease Administration Supervisor for Gerber Jay
[2024-03-18] MEDS: ketorolac 30 mg/mL INJ IVP (13:52)
[2024-03-18] MEDS: dexamethasone 10 mg/mL INJ IM (13:52)
[2024-03-18] MEDS: orphenadrine 30 mg/mL Inj 2 mL 60 MG IM (13:52)
[2024-03-18 14:44] LABS: Bilirubin Urine Negative (Negative); Blood Urine Trace (Negative); Glucose Urine UA Negative (Normal); Ketones Urine Negative (Negative); Leukocyte Esterase Urine Trace (Negative); Nitrate Urine Negative (Negative); Protein Urine Negative (Negative); Specific Gravity, Urine 1.014 (1.005-1.030); Urine Appearance Clear (CLEAR); Urine Color Yellow (Yellow); pH Urine 5.5 (5-7)
[2024-03-18 14:49] LABS: Add Urine Microscopic? YES; Bacteria Urine 1+ /hpf; Hyaline Casts Urine 1.65 /lpf
[2024-03-18 14:55] LABS: Covid PCR NEGATIVE (Negative); Influenza A NEGATIVE (Negative); Influenza B NEGATIVE (Negative); Respiratory Syncytial Virus Ce NEGATIVE (Negative)
[2024-03-18 15:04] LABS: Basophils % 0.3 %; Eosinophils % 0.9 %; Hematocrit 33.1 % (36-47); Lymphocytes # 1.2 10^3/uL (0.8-4.8); Lymphocytes % 37.2 %; Mean Corpuscular HGB Conc 33.5 g/dL (30-55); Mean Corpuscular Hemoglobin 34.3 pg (27-33); Mean Corpuscular Volume 102.2 fl (85-98); Mean Platelet Volume 8.1 fL (7.4-10.4); Monocytes # 0.2 10^3/uL (0.2-0.9); Monocytes % 5.8 %; Neutrophils # 1.82 10^3/uL (1.8-7.7); Neutrophils % 55.5 %; Nucleated Red Blood Cells % 0 %; Platelet Count 169 10^3/cmm (157-399); Red Blood Count 3.24 10^6/uL (3.85-5.65); Red Cell Distribution Width 12.4 % (12.1-15.1); White Blood Count 3.28 10^3/uL (3.29-11.43)
[2024-03-18 15:20] LABS: Alanine Aminotransferase 10 U/L (0-33); Albumin Level 4.1 g/dL (3.5-5.2); Alkaline Phosphatase 141 U/L (35-105); Anion Gap 14.2 (5-19); Aspartate Amino Transferase 14 U/L (0-32); Blood Urea Nitrogen 9 mg/dL (8-23); Calcium 8.4 mg/dL (8.5-10.5); Carbon Dioxide 24 mmol/L (22-29); Chloride 95 mmol/L (98-107); Globulin 2.8 g/dL (1.3-4.6); Glomerular Filtration Rate 72.7 mL/min (90-130); Glucose 91 mg/dL (65-115); Osmolality Calculated 266 mOsm/kg (285-295); Potassium 4.2 mmol/L (3.5-5.1); Sodium 129 mmol/L (136-145); Total Bilirubin 0.5 mg/dL (0.15-1.2); Total Protein 6.9 g/dL (6.6-8.7)
[2024-03-18 15:37] VITALS: BP 156/78; PULSE 56; O2SAT 98
== END 2024-03-18 15:37 | disposition home or self-care (01) ==
PROVIDERS: Emergency Provider Family Medicine; PCP Nurse Practitioner Family
DX: M54.16 Radiculopathy, lumbar region (principal); Z11.52 Encounter for screening for COVID-19; F17.210 Nicotine dependence, cigarettes, uncomplicated; I10 Essential (primary) hypertension
CPT/HCPCS: 0241U; 73502; 80053; 81001; 85025; 96372; 96374; 99284; J1100; J1885; J2360

== ENCOUNTER 2024-04-03 13:26 | Outpatient (CLI) | payer MEDICARE, MEDICAID, SELFPAY ==
--- NOTE | 2024-04-03 13:45 | MR_ITS ---
WS: [id number] MRI LUMBAR SPINE NONCONTRAST HISTORY: Chronic low back pain and RIGHT lower extremity pain. COMPARISON: 10/02/2019 TECHNIQUE: Sagittal and axial multisequence imaging is submitted. Moderate increase in thoracic kyphosis. S shaped curvature thoracic and lumbar spine. Disc spaces are narrowed and desiccated. Vertebral body numbering pattern will be the same as on the prior study. L5 is partially sacralized. L4 anterolisthesis by 3 mm. Conus terminates normally at L1. L1-L2: Mild annular disc bulging. Ligamentum flavum and facet arthritis. No stenosis. L2-L3: Mild annular disc bulging with a RIGHT foraminal disc protrusion. No central stenosis. There i s very mild disc encroachment upon the traversing RIGHT L3 nerve root. Mild RIGHT foraminal stenosis. L3-L4: Mild annular disc bulging. Broad-based LEFT foraminal disc protrusion. Very mild central, bila teral subarticular recess and foraminal stenosis, LEFT greater than RIGHT. Small amount of fluid in t he facet joints. L4-L5: Diffuse annular disc bulging. Disc extends asymmetrically to the RIGHT foramen. Moderate ligam entum flavum and facet arthritis. Mild central with mild subarticular recess encroachment. Moderate t o severe RIGHT and mild LEFT foraminal stenosis. Central and RIGHT foraminal stenosis have progressed since 2019. L5-S1: No stenosis. Paravertebral soft tissues are normal. MR/MR lumbar spine wo con* [id number] IMPRESSION: 1. Degenerative S-shaped scoliosis thoracic and lumbar spines. 2. L4-5: Mild central with bilateral subarticular recess encroachment. Moderat e to severe RIGHT and mild LEFT foraminal stenosis. There is been a progression of central and RIGHT foraminal stenosis since 2019. There is disc contact most significant on the exiting RIGHT L4 nerve root. 3. L3-4: Broad-based LEFT foraminal disc protrusion. Mild central, bilateral s ubarticular recess and foraminal stenosis, LEFT greater than RIGHT. 4. L2-3: Small RIGHT foraminal disc protrusion. Mild disc encroachment upon th e traversing RIGHT L3 nerve root.
== END 2024-04-03 13:27 | disposition home or self-care (01) ==
PROVIDERS: PCP Nurse Practitioner Family; Visit Provider Family Medicine
DX: M51.17 Intervertebral disc disorders with radiculopathy, lumbosacral region (principal); M47.26 Other spondylosis with radiculopathy, lumbar region; M51.16 Intervertebral disc disorders with radiculopathy, lumbar region; M43.16 Spondylolisthesis, lumbar region; M51.26 Other intervertebral disc displacement, lumbar region; M51.360 Other intervertebral disc degeneration, lumbar region with discogenic back pain only; M99.63 Osseous and subluxation stenosis of intervertebral foramina of lumbar region; G62.9 Polyneuropathy, unspecified
CPT/HCPCS: 72148

== ENCOUNTER → 2024-04-18 13:55 | Outpatient (BNVA) | payer MEDICARE, MEDICAID, SELFPAY | PROVIDERS: PCP Nurse Practitioner Family; Visit Provider Orthopaedic Surgery | DX: M51.16 Intervertebral disc disorders with radiculopathy, lumbar region (principal); S39.012A Strain of muscle, fascia and tendon of lower back, initial encounter; M54.16 Radiculopathy, lumbar region; M54.9 Dorsalgia, unspecified | CPT/HCPCS: 72110; 99204 ==

== ENCOUNTER 2024-04-30 06:00 | Outpatient (RCR) | payer MEDICARE, MEDICAID, SELFPAY | END 2024-04-30 23:59 | disposition home or self-care (01) | LOC: WPT 06:00 | PROVIDERS: Visit Provider Orthopaedic Surgery | DX: M54.9 Dorsalgia, unspecified (principal); G89.29 Other chronic pain | CPT/HCPCS: 97162 ==

== ENCOUNTER 2024-05-01 06:00 | Outpatient (RCR) | payer MEDICARE, MEDICAID, SELFPAY | END 2024-05-31 23:59 | disposition home or self-care (01) | LOC: WPT 06:00 | PROVIDERS: Visit Provider Orthopaedic Surgery | DX: M54.9 Dorsalgia, unspecified (principal); G89.29 Other chronic pain | CPT/HCPCS: 97110; 97112; 97530 ==

== ENCOUNTER 2024-06-01 06:30 | Outpatient (RCR) | payer MEDICARE, MEDICAID, SELFPAY | END 2024-06-28 23:59 | disposition home or self-care (01) | LOC: WPT 06:30 | PROVIDERS: Visit Provider Orthopaedic Surgery | DX: M54.9 Dorsalgia, unspecified (principal); G89.29 Other chronic pain | CPT/HCPCS: 97110; 97530 ==

== ENCOUNTER → 2024-06-24 09:39 | Outpatient (BNVA) | payer MEDICARE, MEDICAID, SELFPAY | PROVIDERS: Referring Provider Orthopaedic Surgery; Visit Provider Anesthesiology Pain Medicine | DX: M54.9 Dorsalgia, unspecified (principal) | CPT/HCPCS: 99204 ==

== ENCOUNTER → 2024-07-02 13:17 | Outpatient (BNVA) | payer MEDICARE, MEDICAID, SELFPAY | PROVIDERS: Visit Provider Orthopaedic Surgery | DX: M51.16 Intervertebral disc disorders with radiculopathy, lumbar region (principal) | CPT/HCPCS: 99213 ==

== ENCOUNTER 2024-07-18 06:00 | Outpatient (RCR) | payer MEDICARE, MEDICAID, SELFPAY | END 2024-07-29 23:59 | disposition home or self-care (01) | LOC: WPT 06:00 | PROVIDERS: Visit Provider Orthopaedic Surgery | DX: M54.50 Low back pain, unspecified (principal); G89.29 Other chronic pain | CPT/HCPCS: 97110; 97112; 97161; 97530 ==

== ENCOUNTER 2024-07-30 06:00 | Outpatient (RCR) | payer MEDICARE, MEDICAID, SELFPAY | END 2024-08-28 23:59 | disposition home or self-care (01) | LOC: WPT 06:00 | PROVIDERS: Visit Provider Orthopaedic Surgery | DX: M54.50 Low back pain, unspecified (principal); G89.29 Other chronic pain | CPT/HCPCS: 97110; 97112; 97530; 99214 ==

== ENCOUNTER 2024-08-29 06:00 | Outpatient (RCR) | payer MEDICARE, MEDICAID, SELFPAY | END 2024-09-28 23:59 | disposition home or self-care (01) | LOC: WPT 06:00 | PROVIDERS: Visit Provider Orthopaedic Surgery | DX: M54.50 Low back pain, unspecified (principal); G89.29 Other chronic pain | CPT/HCPCS: 97110; 97112; 97530 ==

== ENCOUNTER → 2024-11-11 10:37 | Outpatient (BNVA) | payer MEDICARE, MEDICAID, SELFPAY | PROVIDERS: PCP Family Medicine; Visit Provider Anesthesiology Pain Medicine | DX: M54.9 Dorsalgia, unspecified (principal) | CPT/HCPCS: 99214 ==

== ENCOUNTER → 2024-11-26 14:37 | Outpatient (BNVA) | payer MEDICARE, MEDICAID, SELFPAY | PROVIDERS: PCP Family Medicine; Visit Provider Anesthesiology Pain Medicine | DX: M54.16 Radiculopathy, lumbar region (principal); M54.9 Dorsalgia, unspecified | CPT/HCPCS: 64483; 64484; J1100; J3490; J9999 ==

== ENCOUNTER → 2024-12-10 09:28 | Outpatient (BNVA) | payer MEDICARE, MEDICAID, SELFPAY | PROVIDERS: PCP Family Medicine; Visit Provider Anesthesiology Pain Medicine | DX: M54.9 Dorsalgia, unspecified (principal); F17.210 Nicotine dependence, cigarettes, uncomplicated | CPT/HCPCS: 99213 ==

== ENCOUNTER → 2025-01-13 11:26 | Outpatient (BNVA) | payer MEDICARE, MEDICAID, SELFPAY | PROVIDERS: PCP Family Medicine; Visit Provider Nurse Practitioner Family | DX: I10 Essential (primary) hypertension (principal); K52.9 Noninfective gastroenteritis and colitis, unspecified; Z80.0 Family history of malignant neoplasm of digestive organs; E78.2 Mixed hyperlipidemia; E55.9 Vitamin D deficiency, unspecified; Z79.899 Other long term (current) drug therapy | CPT/HCPCS: 80053; 80061; 81003; 82306; 82784; 83036; 83516; 84443; 85025 ==

== ENCOUNTER → 2025-01-14 10:14 | Outpatient (BNVA) | payer MEDICARE, MEDICAID, SELFPAY | PROVIDERS: PCP Family Medicine; Visit Provider Nurse Practitioner Family | DX: I10 Essential (primary) hypertension (principal); K52.9 Noninfective gastroenteritis and colitis, unspecified; Z80.0 Family history of malignant neoplasm of digestive organs; E78.2 Mixed hyperlipidemia; E55.9 Vitamin D deficiency, unspecified; Z79.899 Other long term (current) drug therapy | CPT/HCPCS: 83036; 83630; 87045; 87177; 87209; 87328; 87329; 87427; 87449; 87493 ==

== ENCOUNTER → 2025-01-24 13:38 | Outpatient (BNVA) | payer MEDICARE, MEDICAID, SELFPAY | PROVIDERS: PCP Family Medicine; Visit Provider Nurse Practitioner Family | DX: K52.9 Noninfective gastroenteritis and colitis, unspecified (principal); Z80.0 Family history of malignant neoplasm of digestive organs; I10 Essential (primary) hypertension; E78.2 Mixed hyperlipidemia; E55.9 Vitamin D deficiency, unspecified | CPT/HCPCS: 82270 ==

== ENCOUNTER → 2025-01-28 09:22 | Outpatient (BNVA) | payer MEDICARE, MEDICAID, SELFPAY | PROVIDERS: PCP Family Medicine; Visit Provider Anesthesiology Pain Medicine | DX: M54.9 Dorsalgia, unspecified (principal) | CPT/HCPCS: 99213 ==

== ENCOUNTER → 2025-02-17 09:31 | Outpatient (BNVA) | payer MEDICARE, MEDICAID, SELFPAY | PROVIDERS: PCP Family Medicine; Visit Provider Anesthesiology Pain Medicine | DX: M54.9 Dorsalgia, unspecified (principal) | CPT/HCPCS: 99214 ==